=== PATIENT | male | born 1970 | race African-American/Black ===

== ENCOUNTER 2021-04-23 21:59 | Emergency (ER) | payer BC ==
[~2021-04-23] VITALS: Ht 175.3 cm; Wt 86.0 kg
[2021-04-23] MEDS ORDERED: SODIUM CHLORIDE 0.9% 1,000 ML IV ONE (23:30)
[2021-04-23 23:37] LABS: BASOPHILS % 0.8 % (0.0-2.0); EOSINOPHILS % 7.2 % (0.0-5.0); HEMATOCRIT. 41.8 % (42.0-52.0); HEMOGLOBIN. 14.5 g/dL (14.0-18.0); LYMPHOCYTES % 29.8 % (20.0-50.0); MEAN CORPUSCULAR HEMOGLOBIN 32.2 pg (28.0-32.0); MEAN CORPUSCULAR VOLUME 92.6 fL (80.0-94.0); MEAN PLATELET VOLUME 7.8 fl (7.4-10.4); MONOCYTES % 10.1 % (2.0-8.0); NEUTROPHILS % 52.1 % (40.0-76.0); PLATELET 270 x1000/uL (130-400); RED BLOOD CELL COUNT 4.52 mill/uL (4.7-6.1); RED CELL DISTRIBUTION WIDTH 13.8 % (11.6-14.6)
[2021-04-23 23:44] LABS: CHLORIDE 109 mEq/L (98-107)
[2021-04-23 23:48] LABS: PROTHROMBIN TIME 10.5 sec (9.6-11.0)
[2021-04-24 01:28] VITALS: BP 152/90
== END 2021-04-24 01:35 | disposition home or self-care (01) ==
LOC: ER 21:59
DX: K92.1 Melena (principal)
CPT/HCPCS: 36415; 80053; 85025; 85610; 86850; 86900; 86901; 96360; 99283; J7030